=== PATIENT | female | born 1970 | race Caucasian/White ===

== ENCOUNTER 2023-10-03 08:07 | Day surgery (SDC) | payer OTHER ==
[2023-09-29 12:11] VITALS: BMI 36.2
[2023-10-03 09:40] VITALS: TEMP 97.2
[2023-10-03 09:58] VITALS: BP 114/76; PULSE 77; RESP 18
== END 2023-10-03 09:58 | disposition home or self-care (01) ==
LOC: FASU-ENDO 08:07
PROVIDERS: ATTEND Internal Medicine Gastroenterology
PROC: 0DJD8ZZ Inspection of Lower Intestinal Tract, Via Natural or Artificial Opening Endoscopic (ICD-10-PCS; principal; 2023-10-03 09:14)
DX: Z12.11 Encounter for screening for malignant neoplasm of colon (principal); K57.30 Diverticulosis of large intestine without perforation or abscess without bleeding